=== PATIENT | female | born 1935 | race Caucasian/White ===

== ENCOUNTER 2021-11-02 15:13 | Emergency (ER) | payer OTHER ==
[~2021-11-02] VITALS: Ht 162.6 cm; Wt 45.0 kg
[~2021-11-02 15:13] MED LIST: ALEN70TA79 PO; CITA20TA19 PO; DONE5TAB33 PO; LOVA20TA2 PO; OCD MT
[2021-11-02 21:40] VITALS: BP 139/51
== END 2021-11-02 21:50 | disposition home or self-care (01) ==
LOC: ER 15:13
DX: S01.112A Laceration without foreign body of left eyelid and periocular area, initial encounter (principal); I10 Essential (primary) hypertension; E78.00 Pure hypercholesterolemia, unspecified; E11.9 Type 2 diabetes mellitus without complications; W01.0XXA Fall on same level from slipping, tripping and stumbling without subsequent striking against object, initial encounter; Y93.89 Activity, other specified; Y92.89 Other specified places as the place of occurrence of the external cause; Y99.8 Other external cause status
CPT/HCPCS: 12011; 99284

== ENCOUNTER 2022-08-16 13:40 | Emergency (ER) | payer OTHER ==
[~2022-08-16] VITALS: Ht 152.4 cm; Wt 71.0 kg
[2022-08-16 13:47] VITALS: BP 149/43
[2022-08-16 19:33] LABS: CHLORIDE 107 mEq/L (98-107)
[2022-08-16 19:34] LABS: BASOPHILS % 0.6 % (0.0-2.0); EOSINOPHILS % 2.3 % (0.0-5.0); HEMATOCRIT. 33.3 % (36.0-48.0); HEMOGLOBIN. 11.3 g/dL (12.0-16.0); LYMPHOCYTES % 27.7 % (20.0-50.0); MEAN CORPUSCULAR VOLUME 94.6 fL (81.0-99.0); MEAN PLATELET VOLUME 6.9 fl (7.4-10.4); MONOCYTES % 9.4 % (2.0-8.0); PLATELET 204 x1000/uL (130-400); RED BLOOD CELL COUNT 3.52 mill/uL (4.2-5.4); RED CELL DISTRIBUTION WIDTH 13.4 % (11.6-14.6)
[2022-08-16 19:35] LABS: PARTIAL THROMBOPLASTIN TIME 27.2 sec (23.4-31.0); PROTHROMBIN TIME 11.1 sec (9.6-11.0)
[2022-08-16] MEDS ORDERED: FURO-152 MT (22:28)
== END 2022-08-16 23:39 | disposition home or self-care (01) ==
LOC: ER 13:58
DX: R60.9 Edema, unspecified (principal)
CPT/HCPCS: 36415; 71045; 80053; 83880; 84484; 85025; 93970; 99285